=== PATIENT | male | born 1995 | race African-American/Black ===

== ENCOUNTER 2018-03-21 08:34 | Emergency (ER) | payer OTHER ==
[~2018-03-21] VITALS: Ht 188 cm; Wt 82.0 kg
[~2018-03-21 08:34] MED LIST: ALBUTEROL0.083 % IN; ALLEGRA60 MG OR; AMOXICILLIN500 MG PO; FLONASE NASAL50 MCG; PROVENTIL0.083 % IN
[2018-03-21 09:09] LABS: IMMATURE GRANULOCYTES 0.5 % (0.0-5.0); MEAN CORPUSCULAR HGB 25.5 pG CALC (26.0-32.0); MEAN CORPUSCULAR HGB CONC 32.5 g/L CALC (32.0-36.0); NEUT# 9.29 thou/uL (1.82-7.42); RED BLOOD COUNT 5.38 mill/uL (4.70-6.10); RED CELL DISTRI WIDTH 14.4 % (11.5-15.5)
[2018-03-21 09:10] LABS: URINE BILIRUBIN - DIPSTICK NEGATIVE (NEGATIVE); URINE BLOOD DIPSTICK TRACE-INTACT (NEGATIVE); URINE COLOR YELLOW; URINE GLUCOSE - DIPSTICK NEGATIVE (NEGATIVE); URINE KETONE NEGATIVE (NEGATIVE); URINE LEUK ESTERASE TRACE (NEGATIVE); URINE NITRITE - DIPSTICK NEGATIVE (Negative); URINE PROTEIN - DIPSTICK TRACE mg/dL (NEG-TRACE); URINE SPECIFIC GRAVITY 1.015
[2018-03-21 09:31] LABS: HEMATOCRIT 42.1 % (39.0-50.0); HEMOGLOBIN 13.7 g/dl (14.0-18.0); MEAN CELL VOLUME 78.3 fL CALC (80.0-100.0)
[2018-03-21 09:31] LABS: BARBITURATES NEGATIVE (NEGATIVE); COCAINE NEGATIVE (NEGATIVE); METHADONE NEGATIVE (NEGATIVE); TETRAHYDROCANNABIONOL POSITIVE (NEGATIVE); TRICYLIC ANTIDEPRESSANTS NEGATIVE (NEGATIVE)
[2018-03-21 09:32] LABS: OXCYCODONE NEGATIVE (NEGATIVE)
[2018-03-21 09:50] LABS: ALBUMIN 3.8 g/dL (3.2-5.0); ANION GAP 13 (6-22 (CALC)); BUN 7 mg/dL (9-20); BUN/CREATININE RATIO 8 (12-20 (CALC)); CARBON DIOXIDE 26 mmol/l (22-30); CHLORIDE 105 mmol/l (95-108); CREATININE 0.9 mg/dL (0.7-1.3); GFR > 60 ML/MIN (>=60 (CALC)); GFR FOR AFR.AMER. > 60 ML/MIN (>=60 (CALC)); POTASSIUM 3.9 mmol/l (3.5-5.1); SGOT/AST 24 u/l (17-59); SODIUM 140 mmol/l (137-146); TOTAL PROTEIN 6.9 g/dL (6.3-8.2)
[2018-03-21 09:59] LABS: ALKALINE PHOSPHATASE 59 u/l (38-126)
[2018-03-21] MEDS ORDERED: NAPROSYN500 MG PO (10:34)
[2018-03-21] MEDS ORDERED: ROBITUSSIN200 MG/10 PO (10:34)
[2018-03-21] MEDS ORDERED: CEPHALEXIN500 M1 PO (10:34)
[2018-03-21 10:58] VITALS: BP 112/62
== END 2018-03-21 11:38 | disposition home or self-care (01) | DRG 153 ==
LOC: ED 08:34
PROVIDERS: Emergency Medicine
DX: J06.9 Acute upper respiratory infection, unspecified (principal); J02.9 Acute pharyngitis, unspecified; R51 Headache; R05 Cough; R50.9 Fever, unspecified; F12.10 Cannabis abuse, uncomplicated

== ENCOUNTER 2019-03-08 09:49 | Emergency (ER) | payer OTHER ==
[~2019-03-08] VITALS: Ht 188 cm; Wt 72.0 kg
[~2019-03-08 09:49] MED LIST changes: +CEPHALEXIN500 M1 PO; +NAPROSYN500 MG PO; +ROBITUSSIN200 MG/10 PO
[2019-03-08] MEDS ORDERED: CLARITIN10 M1 PO (11:05)
[2019-03-08] MEDS ORDERED: AMOXICILLIN500 MG PO (11:05)
[2019-03-08 11:06] VITALS: BP 110/58
== END 2019-03-08 11:17 | disposition home or self-care (01) | DRG 153 ==
LOC: ED 09:49
DX: J02.9 Acute pharyngitis, unspecified (principal)